=== PATIENT | male | born 1940 | race Caucasian/White ===

== ENCOUNTER 2024-03-24 12:54 | Outpatient (AMB) | payer MEDICARE, SELFPAY ==
--- NOTE | 2024-03-24 12:55 | MHC.OFFVIS ---
Vital Signs 03/24/24 13:01 Height 6 ft 2 in Weight 212 lb 6 oz BMI 27.3 BP 132/70 Blood Pressure Location Rt brachial Position Sitting Respiration 16 Pulse 62 Pulse Source Pulse Oximeter Pulse Oximetry (%) 97 Oxygen Delivery Method Room Air Intake Visit Reasons: E-GARBAGE PERSON: Memory Problems - Confirmed Intake Note: Pt presents for new patient consultation for memory loss. Petroleum Refining Firer Required: Yes Petroleum Refining Firer Services: Petroleum Refining Firer Present Petroleum Refining Firer Name: Sarah Dorsey CMA Allergies No Known Allergies Allergy (Verified 03/24/24 12:56) Medication List - Last Reconciled 04/01/24 by Mindy Flynn MD apixaban (Eliquis) 5 mg PO BID aspirin 81 mg PO DAILY atorvastatin 80 mg PO DAILY carvedilol (Coreg) 12.5 mg PO BID furosemide (Lasix) 40 mg PO DAILY gabapentin 100 mg PO TID metformin 500 mg PO BID pantoprazole (Protonix) 40 mg PO DAILY HPI Comments Details: 83y/o male comes for evaluation of cognitive issues. He is accompanied by his niece who helps with the history. He has h/o CVA,hemorrhagic stroke, atrial fibrillation, HTN, diabetes, hyperlipidemia etc.He was admitted in January 2023 for a bleed in basal ganglia. He had 4 falls last month and was admitted at [facility]. He lives alone in a second floor apartment and his niece is concerned about his safety. He has a [employer] SALES [employer]OCIATE who comes 25 hrs a week. He needs help with showers dressing cooking. He has multiple falls due to dizziness. He has worsening of his short term memory.he has some trouble with word finding, speech is worse, loses his train of thought. He frequently misplaces things around the house. He does not drive. He worked in a paper factory and [employer] [facility] Medical History (Updated 04/01/24 @ 11:46 by Mindy Flynn MD) Falls frequently CVA (cerebral vascular accident) Dementia Hypercholesteremia Hypertension Venous stasis of lower extremity Overweight Diabetes mellitus Atrial fibrillation CVA (cerebral vascular accident) Vitamin B12 deficiency Dysarthria Social History Alcohol intake: current Comment: 1-2 times per month Patient Tobacco Use Status: Never used Tobacco Review of Systems Neuro Reports confusion Psych Reports confusion Physical Exam Vital Signs: Last Vital Signs Pulse 62 03/24/24 13:01 Resp 16 03/24/24 13:01 BP 132/70 03/24/24 13:01 Pulse Ox 97 03/24/24 13:01 Oxygen Delivery Method Room Air 03/24/24 13:01 BMI result Body Mass Index 27.3 Const General: cooperative, comfortable and confusion Nutritional Appearance: average body habitus Orientation/consciousness: confusion Neuro Other: right facial weakness. Right UE 4/5 Increased tone Right LE 4/5 Left UE 5/5 Left lE 4/5 Gait - with cane off balance speech - ok General: moves all extremities and confusion Cranial nerves: Yes Nystagmus not present Deep tendon reflexes (DTR's): Right triceps reflex intensity grade: 1+, Left triceps reflex intensity grade: 1+, Rt Biceps (C5, C6): 1+, Left biceps reflex intensity grade: 1+, Right brachioradialis reflex intensity grade: 1+, Left brachioradialis reflex intensity grade: 1+, Right patellar reflex intensity grade: 1+ and Left patellar reflex intensity grade: 1+ Coordination: [id number] test normal Orientation What is the (year) (season) (date) (day) (month)?: date, day and month Where are we (state) (county) (town or city) (hospital) (floor)?: state, county, town or city and hospital/clinic Registration Name of 3 unrelated objects clearly and slowly, then ask patient to repeat all 3 of them. (1st repeat determines score. Make sure they can repeat all three): object 1, object 2 and object 3 Recall Ask patient to repeat the 3 items from question #3.: object 1 and object 2 Language Show patient a wristwatch & ask what it is. Repeat for pencil.: watch and pencil Ask the patient to repeat the phrase 'No ifs, ands, or buts' after you.: correct Ask the patient to 'take a piece of paper with their right hand' 'fold paper in half' 'place paper on floor': take paper in right hand, fold paper in half and place paper on floor Score Score: 18 Assessment & Plan Assessment & Plan (1) Dementia: Comment: vascular Code(s): F03.90 - Unspecified dementia, unspecified severity, without behavioral disturbance, psychotic disturbance, mood disturbance, and anxiety Category: Medical (2) CVA (cerebral vascular accident): Code(s): I63.9 - Cerebral infarction, unspecified Category: Medical (3) Falls frequently: Code(s): R29.6 - Repeated falls Category: Medical Plan Labs and MRI reports form PCP for review Continue aspirin 81mg qd Risk factor reduction F/u with cardiology Fall prevention discussed- patient needs a first floor housing- he currently lives in the second and has had a few falls while coming down the stairs. declines PT will follow up clinically Coding Level of Care Code New Pt Level 4 (38738) Complex EM visit Add On G2211 Diagnoses Dementia F03.90 CVA (cerebral vascular accident) I63.9 Falls frequently R29.6
[2024-03-24 13:01] VITALS: BP 132/70; PULSE 62; RESP 16; O2SAT 97; BMI 27.3
== END 2024-03-24 13:43 | disposition home or self-care (01) ==
PROVIDERS: PCP Internal Medicine; Visit Provider Psychiatry & Neurology Neurology
DX: F01.50 Vascular dementia, unspecified severity, without behavioral disturbance, psychotic disturbance, mood disturbance, and anxiety (principal); I69.398 Other sequelae of cerebral infarction; R29.6 Repeated falls
CPT/HCPCS: 99204; G2211

== ENCOUNTER → 2024-03-24 12:54 | Outpatient (BNVA) | payer MEDICARE, SELFPAY | PROVIDERS: PCP Internal Medicine; Visit Provider Psychiatry & Neurology Neurology | DX: F03.90 Unspecified dementia, unspecified severity, without behavioral disturbance, psychotic disturbance, mood disturbance, and anxiety (principal); R29.6 Repeated falls; Z86.73 Personal history of transient ischemic attack (TIA), and cerebral infarction without residual deficits | CPT/HCPCS: 99202 ==